=== PATIENT | male | born 1935 | race Caucasian/White ===

== ENCOUNTER → 2017-04-12 | Outpatient (CLI) | payer MEDICARE, OTHER ==
[~2017-04-12] MED LIST: ACET-2902 PO; ATOR40TA71 PO; COLE625 PO; DIVA500T2 PO; DUTA.5 PO; LISI-618 PO; METO-391 PO; MULT-1192 PO; MULT-1259 PO; NITR0.4T10 SL; SITA50 PO; TAMS0.4C32 PO; TERA2 PO; VICOT PO; ZOLP5 PO
== END | disposition home or self-care (01) ==
LOC: RADPV 12:06
PROVIDERS: ATTEND Internal Medicine Clinical Cardiac Electrophysiology
DX: T82.118A Breakdown (mechanical) of other cardiac electronic device, initial encounter (principal); J98.11 Atelectasis; I70.0 Atherosclerosis of aorta; Z98.890 Other specified postprocedural states
CPT/HCPCS: 71020

== ENCOUNTER → 2017-04-12 | Outpatient (CLI) | payer MEDICARE, MEDICAID ==
[~2017-04-12] VITALS: Ht 175.3 cm; Wt 77.0 kg
[2017-04-12 10:53] VITALS: BP 107/56
== END | disposition home or self-care (01) ==
LOC: SRCNTR 10:33
PROVIDERS: ATTEND Internal Medicine Clinical Cardiac Electrophysiology
DX: Z45.02 Encounter for adjustment and management of automatic implantable cardiac defibrillator (principal); I11.0 Hypertensive heart disease with heart failure; I50.9 Heart failure, unspecified; E11.9 Type 2 diabetes mellitus without complications; E78.5 Hyperlipidemia, unspecified; I44.7 Left bundle-branch block, unspecified
CPT/HCPCS: G0463

== ENCOUNTER → 2017-04-26 | Outpatient (CLI) | payer MEDICARE, MEDICAID ==
[~2017-04-26] VITALS: Ht 175.3 cm; Wt 77.0 kg
[~2017-04-26] MED LIST changes: -ACET-2902 PO; -ATOR40TA71 PO; +INFLUENZA VIRUS VACCINE QVS 2017-18 (3YR+)/PF 60 MCG/0.5 ML SYRINGE IM ONE; -METO-391 PO; -NITR0.4T10 SL; -TERA2 PO; -VICOT PO; -ZOLP5 PO
[2017-04-26 10:59] VITALS: BP 102/64
== END | disposition home or self-care (01) ==
LOC: SRCNTR 10:40
PROVIDERS: ATTEND Internal Medicine Clinical Cardiac Electrophysiology
DX: I11.0 Hypertensive heart disease with heart failure (principal); I50.22 Chronic systolic (congestive) heart failure; E78.5 Hyperlipidemia, unspecified; E11.9 Type 2 diabetes mellitus without complications
CPT/HCPCS: 90471 ×2; G0463; 96372

== ENCOUNTER 2017-06-01 18:03 | Emergency (ER) | payer MEDICARE, OTHER ==
[~2017-06-01] VITALS: Ht 170.2 cm; Wt 78.0 kg
[~2017-06-01 18:03] MED LIST changes: -INFLUENZA VIRUS VACCINE QVS 2017-18 (3YR+)/PF 60 MCG/0.5 ML SYRINGE IM ONE
[2017-06-01 19:41] LABS: APPEARANCE,URINE CLEAR (CLEAR); GLUCOSE, URINE (UA) NEGATIVE (NEGATIVE); KETONES,URINE NEGATIVE (NEGATIVE); LEUKOCYTE ESTERASE ,URINE MODERATE (NEGATIVE); OCCULT BLOOD,URINE SMALL (NEGATIVE); PH,URINE 5.5 (5.0-8.0); PROTEIN,URINE NEGATIVE (NEGATIVE)
[2017-06-01 19:44] LABS: ADD UA MICROSCOPIC YES
[2017-06-01 19:49] LABS: SQUAMOUS EPITHELIAL CELL,UR Few /LPF (None Seen)
[2017-06-01 19:57] VITALS: BP 120/65
== END 2017-06-01 20:08 | disposition home or self-care (01) ==
LOC: EMS 18:04
DX: T83.098A Other mechanical complication of other urinary catheter, initial encounter (principal); N39.0 Urinary tract infection, site not specified; E11.9 Type 2 diabetes mellitus without complications; E78.00 Pure hypercholesterolemia, unspecified; I10 Essential (primary) hypertension
CPT/HCPCS: 87086; 99284